=== PATIENT | male | born 1940 | race Caucasian/White ===

== ENCOUNTER 2017-05-14 15:27 | Inpatient (IN) | payer MEDICARE, BC ==
[~2017-05-14] VITALS: Ht 162.6 cm; Wt 82.6 kg
[2017-05-14 16:10] VITALS: BP 133/83
[2017-05-14] MEDS ORDERED: TEMA7.5C PO (16:28)
[2017-05-14] MEDS ORDERED: FAMO20VI2 IV (16:28)
[2017-05-14] MEDS ORDERED: LEVO750T21 PO (16:28)
[2017-05-14] MEDS ORDERED: AMLO10TA2 PO (16:28)
[2017-05-14] MEDS ORDERED: BENZ1LOZ58 MM (16:28)
[2017-05-14] MEDS ORDERED: ENOX40DI SUBCUT (16:28)
[2017-05-14] MEDS ORDERED: CHOL10002 PO (16:28)
[2017-05-14] MEDS ORDERED: GUAI200T5 PO (16:28)
[2017-05-14] MEDS ORDERED: FLUT16SP BNOSTRILS (16:28)
[2017-05-14] MEDS ORDERED: SILD20TA PO (16:28)
[2017-05-14] MEDS ORDERED: [UNRECOGNIZED DRUG - CODE] IV (16:28)
[2017-05-14] MEDS ORDERED: PIRF267T PO (16:44)
[2017-05-14] MEDS ORDERED: PIRF267C PO (16:44)
[2017-05-14] MEDS ORDERED: SELE200T33 PO (16:44)
[2017-05-14] MEDS ORDERED: IBUP1TAB68 PO (16:44)
--- NOTE | 2017-05-14 19:40 | NUR ---
PT alert and oriented x 4 medication. Pt is in no acute distress. 02 sat 94% on 6 liters humidified via n/c. Skin intact. IV on right hand intact. Call light is within reach. Notified Dr Cameron of new pt and need orders. Dr Jones here to see pt..
--- NOTE | 2017-05-14 20:00 | NUR ---
Received pt on bed alert, awake and oriented. Able to make needs known. No complaints of pain or discomfort. On O2 6L via nasal cannula, O2 sat 92%. Vital signs, BP 123/70, HR 101, RR 19, Temp 98.3. Call light within reach. All needs attended. Will continue to monitor.
--- NOTE | 2017-05-14 20:30 | NUR ---
Called Dr. Cameron to reconcile meds.
--- NOTE | 2017-05-14 21:00 | NUR ---
Dr. Cameron came and checked on the pt. Patient took his own meds. No acute distress noted. Denies pain. Kept clean, dry and comfortable.
[2017-05-14 21:04] VITALS: BP 123/70
[2017-05-15 06:25] LABS: BASOPHILS # (AUTO) 0.1 K/uL (0.0-8.0); EOSINOPHILS # (AUTO) 0.1 K/uL (0.0-0.7); EOSINOPHILS % (AUTO) 0.9 % (0.0-7.0); HEMATOCRIT 40.8 % (40-50); HEMOGLOBIN 13.5 G/DL (14.0-18.0); LYMPHOCYTES # (AUTO) 0.8 K/UL (0.8-4.8); LYMPHOCYTES % (AUTO) 6.7 % (20.5-51.5); MEAN CORPUSCULAR HEMOGLOBIN 29.8 UUG (27.0-31.0); MEAN CORPUSCULAR HGB CONC 33 g/dL (32.0-37.0); MEAN CORPUSCULAR VOLUME 90.4 FL (82.0-92.0); MONOCYTES # (AUTO) 0.9 K/UL (0.1-1.30); MONOCYTES % (AUTO) 6.8 % (0.0-11.0); NEUTROPHILS # (AUTO) 10.6 K/UL (1.8-8.9); NEUTROPHILS % (AUTO) 84.6 % (38.5-71.5); PLATELET COUNT (AUTO) 235 K/UL (150-450); RED BLOOD CELL COUNT(AUTO) 4.51 MIL/UL (4.7-6.1); WHITE BLOOD COUNT (AUTO) 12.5 K/UL (4.0-11.2)
[2017-05-15 06:40] LABS: ALANINE AMINOTRANSFERASE 18 U/L (16-63); ALKALINE PHOSPHATASE 45 U/L (50-136); ASPARTATE AMINOTRANSFERASE 14 U/L (15-37); BILIRUBIN,TOTAL 0.3 mg/dL (0.2-1.0); CARBON DIOXIDE 35 mmol/L (21-32); CHLORIDE 105 mmol/L (98-107); CREATININE 0.9 mg/dL (0.6-1.3); GLUCOSE 121 mg/dL (74-106); MAGNESIUM 2.2 mg/dL (1.8-2.4); PHOSPHOROUS 3.4 mg/dL (2.5-4.9); POTASSIUM 3.8 mmol/L (3.5-5.1); TOTAL PROTEIN, SERUM 5.8 g/dL (6.4-8.2); UREA NITROGEN, BLOOD 19 mg/dL (7-18)
--- NOTE | 2017-05-15 06:50 | NUR ---
Patient slept well throughout the shift. No c/o pain. Assisted pt to the bathroom with oxygen on, able to tolerate activity. On O2 6L via nasal cannula, O2 sat 93%. kept clean, dry and comfortable. Call light within reach. All needs attended. will continue to monitor
[2017-05-15 08:00] VITALS: BP_SYST 116; BP_SYST 145; BP_DIAS 67; BP_DIAS 84
[2017-05-15] MEDS ORDERED: SELEXIPAG 200 MCG PO SCH (09:00)
[2017-05-15] MEDS ORDERED: PATIENT MAY USE OWN MED- MD OK PO SCH ×3 (09:00→12:00)
[2017-05-15] MEDS ORDERED: LEVOFLOXACIN 750 MG TABLET PO SCH (09:00)
[2017-05-15] MEDS ORDERED: UPTRAVI PO SCH ×2 (09:00→21:00)
[2017-05-15] MEDS ORDERED: PIRFENIDONE 267 MG PO SCH ×2 (09:00→21:00)
[2017-05-15] MEDS: FAMOTIDINE. 20 MG/2 ML VIAL IV SCH ×2 (09:54→21:34)
[2017-05-15] MEDS: AMLODIPINE 10 MG TABLET PO SCH (09:54)
[2017-05-15] MEDS: CHOLECALCIFEROL 1,000 UNIT TABLET PO SCH (09:54)
[2017-05-15] MEDS: ENOXAPARIN SODIUM 40 MG/0.4 ML DISP.SYRIN SQ SCH (10:00)
[2017-05-15] MEDS: SILDENAFIL 20 MG TABLET PO SCH ×3 (10:00→18:12)
[2017-05-15] MEDS ORDERED: PATIENT MAY USE OWN MED- MD OK NS PRN (12:00)
[2017-05-15] MEDS ORDERED: PATIENT MAY USE OWN MED- MD OK EACHEYE PRN ×4 (12:00→14:00)
[2017-05-15] MEDS ORDERED: ESBRIET PO SCH (13:00)
[2017-05-15] MEDS: FLUTICASONE PROP NASAL SPRAY 16 GM BOTTLE NS SCH (13:18)
[2017-05-15] MEDS: LEVOFLOXACIN 500 MG TABLET PO SCH (13:18)
[2017-05-15] MEDS ORDERED: POLYVINYL ALCOHOL OPHT DROPS 15 ML BOTTLE EACHEYE PRN (14:15)
[2017-05-15] MEDS ORDERED: MINERAL OIL/PETROLAT OPHT OINT 3.5 GM TUBE EACHEYE PRN (14:30)
[2017-05-15] MEDS ORDERED: SELE200T33 PO (16:47)
[2017-05-15] MEDS ORDERED: ESBRIET 267 MG PO SCH (17:00)
[2017-05-15] MEDS: methylPREDNISolone SOD SUCC 40 MG/ML VIAL IV SCH ×2 (18:12→21:34)
[2017-05-15 20:28] VITALS: BP 130/84
[2017-05-15] MEDS ORDERED: ATORVASTATIN 10 MG TABLET PO SCH (21:00)
[2017-05-15] MEDS: SELEXIPAG PO SCH (21:34)
[2017-05-15] MEDS: TEMAZEPAM 7.5 MG CAPSULE PO PRN (21:58)
[2017-05-16] MEDS: methylPREDNISolone SOD SUCC 40 MG/ML VIAL IV SCH ×3 (06:21→21:37)
[2017-05-16] MEDS: LEVOFLOXACIN 500 MG TABLET PO SCH (06:21)
[2017-05-16] MEDS: FLUTICASONE PROP NASAL SPRAY 16 GM BOTTLE NS SCH (06:30)
--- NOTE | 2017-05-16 06:30 | NUR ---
PT ALERT,ORIENTED WITH PULM. FIBROSIS, PULM HTN, PNA, PT ON CONTINOUS OXYGEN ON 5LITERS WITH SATURATION OF 90%, DENIES ANY ACUTE DISTRESS, AMBULATES TO BATHROOM WITH OXYGEN AT ALL TIMES. MEDS CLARIFIED AGAIN WITH PATIENT, PT VERBALIZED MEDS RECONCILED ACCORDING TO HIS HOME SCHEDULE. REQUEST SEND TO PHARMACY, WILL CONTINUE TO MONITOR. OTHERWISE ALL NEEDS ATTENDED.HEPLOCK INTACT.
[2017-05-16 08:00] VITALS: BP 134/82
[2017-05-16] MEDS: ATORVASTATIN 10 MG TABLET PO SCH (09:07)
[2017-05-16] MEDS: SILDENAFIL 20 MG TABLET PO SCH ×3 (09:07→16:57)
[2017-05-16] MEDS: FAMOTIDINE. 20 MG/2 ML VIAL IV SCH (09:07)
[2017-05-16] MEDS: ESBRIET 267 MG PO SCH ×3 (09:08→21:11)
[2017-05-16] MEDS: SELEXIPAG PO SCH ×2 (09:08→21:10)
[2017-05-16] MEDS: AMLODIPINE 10 MG TABLET PO SCH (09:08)
[2017-05-16] MEDS: CHOLECALCIFEROL 1,000 UNIT TABLET PO SCH (09:09)
[2017-05-16] MEDS: ENOXAPARIN SODIUM 40 MG/0.4 ML DISP.SYRIN SQ SCH (09:11)
--- NOTE | 2017-05-16 12:47 | NUR ---
Housekeeping Staff SW met with patient at [facility] to assess pt needs and provide support. The patient is a 77 year old male who was admitted with SOB and functional decline. The patient was calm and cooperative during the interview. He stated that he lives at home with his spouse [[id number] [place] [address]; ] and would like to return there upon discharge. Social history: The patient was born and raised in the [facility] and grew up with his parents. The patient worked for a [employer] and also worked in administrative roles, sales, and customer service. He was wamrried to his for 5 years and her. He stated he has been in a relationship with his for 47 (and legally 2 years ago). The patient has a 52 year old son from his first marriage and has a good relationship with him. The patient denied any history of abuse or domestic violence. The patient denied any history of alcohol or drug abuse. SW engaged in active listening and provided supportive counseling during the interview to address patient's depressive symptoms related to his decline in functioning. SW will continue to address issues of loss related to recent hospitalization. SW will encourage compliance with rehab goals. SW will be available as needed.
--- NOTE | 2017-05-16 14:39 | NUR ---
Rehab Team Conference 05/16/17
--- NOTE | 2017-05-16 17:35 | NUR ---
Dr. Dialol in the unit and rounded with him to pt's room, report given no orders received.
--- NOTE | 2017-05-16 20:00 | NUR ---
RECEIVED PT ALERT & ORIENTED X4. ON O2 @ 5LNC W/ O2 SAT OF 92%. HEP LOCK INTACT & PATENT ON L HAND. DENIES PAIN. NOT IN ANY DISTRESS.
[2017-05-16 20:32] VITALS: BP 120/78
[2017-05-16] MEDS: FAMOTIDINE 20 MG TABLET PO SCH (21:10)
[2017-05-16 21:18] LABS: BASOPHILS # (AUTO) 0.1 K/uL (0.0-8.0); BASOPHILS % (AUTO) 0.4 % (0.0-2.0); EOSINOPHILS # (AUTO) 0.1 K/uL (0.0-0.7); EOSINOPHILS % (AUTO) 0.9 % (0.0-7.0); HEMATOCRIT 40.3 % (40-50); HEMOGLOBIN 13.5 G/DL (14.0-18.0); LYMPHOCYTES # (AUTO) 0.6 K/UL (0.8-4.8); LYMPHOCYTES % (AUTO) 4.5 % (20.5-51.5); MEAN CORPUSCULAR HEMOGLOBIN 30.1 UUG (27.0-31.0); MEAN CORPUSCULAR HGB CONC 33 g/dL (32.0-37.0); MEAN CORPUSCULAR VOLUME 90.3 FL (82.0-92.0); MONOCYTES # (AUTO) 0.6 K/UL (0.1-1.30); MONOCYTES % (AUTO) 4.7 % (0.0-11.0); NEUTROPHILS # (AUTO) 11.8 K/UL (1.8-8.9); NEUTROPHILS % (AUTO) 89.5 % (38.5-71.5); PLATELET COUNT (AUTO) 206 K/UL (150-450); RED BLOOD CELL COUNT(AUTO) 4.47 MIL/UL (4.7-6.1); WHITE BLOOD COUNT (AUTO) 13.2 K/UL (4.0-11.2)
[2017-05-16 21:45] LABS: ALANINE AMINOTRANSFERASE 22 U/L (16-63); ALKALINE PHOSPHATASE 47 U/L (50-136); ASPARTATE AMINOTRANSFERASE 18 U/L (15-37); BILIRUBIN,TOTAL 0.2 mg/dL (0.2-1.0); CARBON DIOXIDE 37 mmol/L (21-32); CHLORIDE 100 mmol/L (98-107); CREATININE 0.9 mg/dL (0.6-1.3); GLUCOSE 187 mg/dL (74-106); MAGNESIUM 2.1 mg/dL (1.8-2.4); PHOSPHOROUS 3.1 mg/dL (2.5-4.9); POTASSIUM 3.4 mmol/L (3.5-5.1); TOTAL PROTEIN, SERUM 5.8 g/dL (6.4-8.2); UREA NITROGEN, BLOOD 22 mg/dL (7-18)
[2017-05-16 21:59] LABS: BAND % (MANUAL) 4 % (0-10); LYMPHOCYTES % (MANUAL) 5 % (20-40); MONOCYTES % (MANUAL) 5 % (2-10); NEUTROPHILS % (MANUAL) 86 % (42-75)
[2017-05-17] MEDS: LEVOFLOXACIN 500 MG TABLET PO SCH (05:36)
[2017-05-17] MEDS: methylPREDNISolone SOD SUCC 40 MG/ML VIAL IV SCH ×2 (05:36→21:09)
--- NOTE | 2017-05-17 06:00 | NUR ---
HEP LOCK INTACT & PATENT. REMAINS ON O2 @ 5LNC. DENIES ANY DISCOMFORTS.
[2017-05-17 08:00] VITALS: BP 147/82
[2017-05-17] MEDS: FLUTICASONE PROP NASAL SPRAY 16 GM BOTTLE NS SCH (08:21)
[2017-05-17] MEDS: ATORVASTATIN 10 MG TABLET PO SCH (08:23)
[2017-05-17] MEDS: FAMOTIDINE 20 MG TABLET PO SCH ×2 (08:23→21:10)
[2017-05-17] MEDS: CHOLECALCIFEROL 1,000 UNIT TABLET PO SCH (08:23)
[2017-05-17] MEDS: SELEXIPAG PO SCH ×2 (08:23→21:11)
[2017-05-17] MEDS: ESBRIET 267 MG PO SCH ×3 (08:24→21:10)
[2017-05-17] MEDS: IBUPROFEN 200 MG TABLET PO PRN (08:25)
[2017-05-17] MEDS: ENOXAPARIN SODIUM 40 MG/0.4 ML DISP.SYRIN SQ SCH (08:29)
[2017-05-17] MEDS: AMLODIPINE 10 MG TABLET PO SCH (08:29)
[2017-05-17] MEDS ORDERED: POTASSIUM CHLORIDE 20 MEQ TAB.PRT.SR PO ONE (11:45)
[2017-05-17 20:40] VITALS: BP 121/80
[2017-05-18] MEDS: LEVOFLOXACIN 500 MG TABLET PO SCH (06:16)
[2017-05-18 06:58] LABS: BASOPHILS % (AUTO) 0.2 % (0.0-2.0); EOSINOPHILS # (AUTO) 0.1 K/uL (0.0-0.7); HEMATOCRIT 40.1 % (40-50); HEMOGLOBIN 13.3 G/DL (14.0-18.0); LYMPHOCYTES # (AUTO) 0.7 K/UL (0.8-4.8); LYMPHOCYTES % (AUTO) 5.7 % (20.5-51.5); MEAN CORPUSCULAR HGB CONC 33 g/dL (32.0-37.0); MEAN CORPUSCULAR VOLUME 90.5 FL (82.0-92.0); MONOCYTES # (AUTO) 0.6 K/UL (0.1-1.30); MONOCYTES % (AUTO) 4.9 % (0.0-11.0); NEUTROPHILS # (AUTO) 10.3 K/UL (1.8-8.9); NEUTROPHILS % (AUTO) 88.2 % (38.5-71.5); PLATELET COUNT (AUTO) 193 K/UL (150-450); RED BLOOD CELL COUNT(AUTO) 4.43 MIL/UL (4.7-6.1); WHITE BLOOD COUNT (AUTO) 11.7 K/UL (4.0-11.2)
[2017-05-18 07:02] LABS: CARBON DIOXIDE 39 mmol/L (21-32); CHLORIDE 103 mmol/L (98-107); CREATININE 0.8 mg/dL (0.6-1.3); GLUCOSE 121 mg/dL (74-106); MAGNESIUM 2.2 mg/dL (1.8-2.4); PHOSPHOROUS 3.7 mg/dL (2.5-4.9); POTASSIUM 4.3 mmol/L (3.5-5.1); UREA NITROGEN, BLOOD 17 mg/dL (7-18)
--- NOTE | 2017-05-18 07:15 | NUR ---
Received pt in bed, a/o x4, on 5L/NC, Denies any pain, Call light within reach, Bed kept low/locked position.
[2017-05-18 07:45] VITALS: BP 125/71
[2017-05-18 08:25] LABS: BAND % (MANUAL) 1 % (0-10); LYMPHOCYTES % (MANUAL) 10 % (20-40); METAMYELOCYTES % 1 % (0-1); MONOCYTES % (MANUAL) 3 % (2-10); MYELOCYTES % 1 % (0-0); NEUTROPHILS % (MANUAL) 84 % (42-75)
[2017-05-18] MEDS: CHOLECALCIFEROL 1,000 UNIT TABLET PO SCH (08:39)
[2017-05-18] MEDS: FAMOTIDINE 20 MG TABLET PO SCH ×2 (08:39→22:03)
[2017-05-18] MEDS: FLUTICASONE PROP NASAL SPRAY 16 GM BOTTLE NS SCH (08:39)
[2017-05-18] MEDS: ATORVASTATIN 10 MG TABLET PO SCH (08:40)
[2017-05-18] MEDS: SELEXIPAG PO SCH ×2 (08:40→22:10)
[2017-05-18] MEDS: AMLODIPINE 10 MG TABLET PO SCH (08:40)
[2017-05-18] MEDS: ESBRIET 267 MG PO SCH ×3 (08:40→22:10)
[2017-05-18] MEDS: methylPREDNISolone SOD SUCC 40 MG/ML VIAL IV SCH ×2 (08:41→22:04)
[2017-05-18] MEDS: ENOXAPARIN SODIUM 40 MG/0.4 ML DISP.SYRIN SQ SCH (08:43)
--- NOTE | 2017-05-18 16:13 | NUR ---
WAS NOTIFIED BY [facility] THAT PT IS POSITIVE FOR MRSA NARES. DR. VEE WAS MADE AWARE WITH NEW ORDERS RECEIVED FOR BACTROBAN OINTMENT TO NARES. PT TEACHING PROVIDED TO FAMILY AND PATIENT ON ISOLATION PRECAUTIONS, VERBALIZE UNDERSTANDING.
--- NOTE | 2017-05-18 18:19 | NUR ---
PT IN BED, NO ACUTE DISTRESS NOTED, HEPLOCK TO LEFT HAND G 20, INTACT AND PATENT. CALL LIGHT WITHIN REACH, BED LOW LOCKED POSITION.
[2017-05-18 20:55] VITALS: BP 113/75
[2017-05-18] MEDS: MUPIROCIN 2% OINT 22 GM TUBE NS SCH (22:08)
--- NOTE | 2017-05-19 01:35 | NUR ---
2000: Received SBAR report. Pt resting in bed on right side. No acute distress. a/o x 4 follows directions. DENIS. able to ambulate to BR by self. Pt assessment done and documented. Denies any pain. Continue to monitor. Addendum: 05/19/17 at 0510 by AILIN HOLLINS RN No acute distress. resting with eyes close. No changes.
[2017-05-19] MEDS: LEVOFLOXACIN 500 MG TABLET PO SCH (05:53)
[2017-05-19 08:55] VITALS: BP 159/70
[2017-05-19] MEDS: SELEXIPAG PO SCH ×2 (09:00→21:13)
[2017-05-19] MEDS: FLUTICASONE PROP NASAL SPRAY 16 GM BOTTLE NS SCH (11:36)
[2017-05-19] MEDS: MUPIROCIN 2% OINT 22 GM TUBE NS SCH ×2 (11:37→20:51)
[2017-05-19] MEDS: methylPREDNISolone SOD SUCC 40 MG/ML VIAL IV SCH ×2 (11:39→20:51)
[2017-05-19] MEDS: ATORVASTATIN 10 MG TABLET PO SCH (11:39)
[2017-05-19] MEDS: AMLODIPINE 10 MG TABLET PO SCH (11:40)
[2017-05-19] MEDS: FAMOTIDINE 20 MG TABLET PO SCH ×2 (11:40→20:51)
[2017-05-19] MEDS: ENOXAPARIN SODIUM 40 MG/0.4 ML DISP.SYRIN SQ SCH (11:42)
[2017-05-19] MEDS: ESBRIET 267 MG PO SCH ×3 (13:33→21:12)
[2017-05-19] MEDS: CHOLECALCIFEROL 1,000 UNIT TABLET PO SCH (13:33)
[2017-05-19] MEDS: SIMETHICONE 80 MG TAB.CHEW PO PRN (14:36)
[2017-05-19 20:14] VITALS: BP 138/72
--- NOTE | 2017-05-20 05:29 | NUR ---
AAO x 4 No neuro deficit noted. Continues to have DOC. On 5 L NC O2. No respiratory or cardiac distress. Denied pain. sleeping comfortably and well. voiding without problem. continue to monitor.
[2017-05-20] MEDS: LEVOFLOXACIN 500 MG TABLET PO SCH (05:58)
[2017-05-20 07:25] VITALS: BP 128/78
--- NOTE | 2017-05-20 08:00 | NUR ---
RECEIVED PT ALERT & ORIENTED X4. ON O2 @ 5LNC W/ O2 SAT OF 92%. HEP LOCK INTACT & PATENT. DENIES PAIN. NOT IN ANY DISTRESS.
[2017-05-20] MEDS: AMLODIPINE 10 MG TABLET PO SCH (09:55)
[2017-05-20] MEDS: ATORVASTATIN 10 MG TABLET PO SCH (09:55)
[2017-05-20] MEDS: methylPREDNISolone SOD SUCC 40 MG/ML VIAL IV SCH ×2 (09:55→21:42)
[2017-05-20] MEDS: CHOLECALCIFEROL 1,000 UNIT TABLET PO SCH (09:56)
[2017-05-20] MEDS: FAMOTIDINE 20 MG TABLET PO SCH ×2 (09:56→21:44)
[2017-05-20] MEDS: FLUTICASONE PROP NASAL SPRAY 16 GM BOTTLE NS SCH (09:57)
[2017-05-20] MEDS: MUPIROCIN 2% OINT 22 GM TUBE NS SCH ×2 (09:57→21:43)
[2017-05-20] MEDS: ESBRIET 267 MG PO SCH ×3 (09:58→21:43)
[2017-05-20] MEDS: SELEXIPAG PO SCH ×2 (09:58→21:43)
--- NOTE | 2017-05-20 18:00 | NUR ---
stable at this time. no s/s of any acute distress noted. amb independently to the bathroom
--- NOTE | 2017-05-20 19:30 | NUR ---
PT ALERT AND ORIENTED IN BED. NO DISTRESS NOTED. O2 SAT 97% WITH O2 IN PLACE. ISOLATION PRECAUTIONS IN PLACE. IV INTACT AND PATENT. SAFETY MAINTAINED. CALL LIGHT WITHIN REACH. WILL CONTINUE TO MONITOR.
[2017-05-20 20:00] VITALS: BP 157/74
[2017-05-20] MEDS: SIMETHICONE 80 MG TAB.CHEW PO PRN (21:44)
[2017-05-20] MEDS: TEMAZEPAM 7.5 MG CAPSULE PO PRN (21:44)
[2017-05-21] MEDS: LEVOFLOXACIN 500 MG TABLET PO SCH (05:41)
--- NOTE | 2017-05-21 07:03 | NUR ---
PT ALERT AND ORIENTED IN BED. NO DISTRESS NOTED. NO SOB NOTED. O2 5L NC WITH HUMIDIFIER IN PLACE. ISOLATION PRECAUTION IN PLACE. SAFETY MAINTAINED. CALL LIGHT WITHIN REACH.
[2017-05-21 07:20] VITALS: BP 149/82
[2017-05-21] MEDS: ESBRIET 267 MG PO SCH ×3 (08:06→21:43)
[2017-05-21] MEDS: FAMOTIDINE 20 MG TABLET PO SCH ×2 (08:06→21:44)
[2017-05-21] MEDS: CHOLECALCIFEROL 1,000 UNIT TABLET PO SCH (08:06)
[2017-05-21] MEDS: SELEXIPAG PO SCH ×2 (08:06→21:42)
[2017-05-21] MEDS: ATORVASTATIN 10 MG TABLET PO SCH (08:06)
[2017-05-21] MEDS: IBUPROFEN 200 MG TABLET PO PRN (08:08)
[2017-05-21] MEDS: MUPIROCIN 2% OINT 22 GM TUBE NS SCH ×2 (08:08→21:45)
[2017-05-21] MEDS: methylPREDNISolone SOD SUCC 40 MG/ML VIAL IV SCH ×2 (08:10→21:44)
[2017-05-21] MEDS: FLUTICASONE PROP NASAL SPRAY 16 GM BOTTLE NS SCH (08:11)
[2017-05-21] MEDS: AMLODIPINE 10 MG TABLET PO SCH (08:23)
[2017-05-21] MEDS: GUAIFENESIN SUGAR FREE 100 MG/5 ML UDC PO PRN ×2 (08:23→21:45)
[2017-05-21] MEDS: SIMETHICONE 80 MG TAB.CHEW PO PRN ×2 (13:09→18:51)
[2017-05-21 20:17] VITALS: BP 130/68
[2017-05-21] MEDS: TEMAZEPAM 7.5 MG CAPSULE PO PRN (21:44)
[2017-05-22 06:41] LABS: BASOPHILS # (AUTO) 0.8 K/uL (0.0-8.0); BASOPHILS % (AUTO) 4.6 % (0.0-2.0); EOSINOPHILS # (AUTO) 0.1 K/uL (0.0-0.7); EOSINOPHILS % (AUTO) 0.5 % (0.0-7.0); HEMATOCRIT 42.6 % (40-50); HEMOGLOBIN 13.8 G/DL (14.0-18.0); LYMPHOCYTES # (AUTO) 1.9 K/UL (0.8-4.8); LYMPHOCYTES % (AUTO) 11.9 % (20.5-51.5); MEAN CORPUSCULAR HEMOGLOBIN 29.6 UUG (27.0-31.0); MEAN CORPUSCULAR HGB CONC 32 g/dL (32.0-37.0); MEAN CORPUSCULAR VOLUME 91.6 FL (82.0-92.0); MONOCYTES # (AUTO) 1.4 K/UL (0.1-1.30); MONOCYTES % (AUTO) 8.6 % (0.0-11.0); NEUTROPHILS # (AUTO) 12.1 K/UL (1.8-8.9); NEUTROPHILS % (AUTO) 74.4 % (38.5-71.5); PLATELET COUNT (AUTO) 180 K/UL (150-450); RED BLOOD CELL COUNT(AUTO) 4.66 MIL/UL (4.7-6.1); WHITE BLOOD COUNT (AUTO) 16.3 K/UL (4.0-11.2)
--- NOTE | 2017-05-22 06:49 | NUR ---
PT RESTING IN BED. NO DISTRESS NOTED. IV INTACT AND PATENT. COMPLIANT WITH NURSING CARE. SLEPT WELL THROUGHOUT THE NIGHT. SAFETY MAINTAINED. CALL LIGHT WITHIN REACH. Addendum: 05/22/17 at 0651 by PEDRO ESQUEDA RN ISOLATION MAINTAINED.
[2017-05-22 06:58] LABS: CHLORIDE 104 mmol/L (98-107); CREATININE 0.9 mg/dL (0.6-1.3); GLUCOSE 92 mg/dL (74-106); PHOSPHOROUS 3.4 mg/dL (2.5-4.9); POTASSIUM 3.6 mmol/L (3.5-5.1); UREA NITROGEN, BLOOD 12 mg/dL (7-18)
[2017-05-22 07:08] LABS: CARBON DIOXIDE 40 mmol/L (21-32)
[2017-05-22 07:15] VITALS: BP 138/75
[2017-05-22] MEDS: ATORVASTATIN 10 MG TABLET PO SCH (07:46)
[2017-05-22] MEDS: CHOLECALCIFEROL 1,000 UNIT TABLET PO SCH (07:46)
[2017-05-22] MEDS: FAMOTIDINE 20 MG TABLET PO SCH ×2 (07:46→20:41)
[2017-05-22] MEDS: FLUTICASONE PROP NASAL SPRAY 16 GM BOTTLE NS SCH (07:47)
[2017-05-22] MEDS: methylPREDNISolone SOD SUCC 40 MG/ML VIAL IV SCH ×2 (07:47→20:40)
[2017-05-22] MEDS: AMLODIPINE 10 MG TABLET PO SCH (07:47)
[2017-05-22] MEDS: MUPIROCIN 2% OINT 22 GM TUBE NS SCH ×2 (07:47→20:41)
[2017-05-22] MEDS: ESBRIET 267 MG PO SCH ×3 (07:48→20:41)
[2017-05-22] MEDS: SELEXIPAG PO SCH ×2 (07:48→20:41)
[2017-05-22 08:34] LABS: BAND % (MANUAL) 3 % (0-10); LYMPHOCYTES % (MANUAL) 10 % (20-40); MONOCYTES % (MANUAL) 11 % (2-10); NEUTROPHILS % (MANUAL) 76 % (42-75)
[2017-05-22 15:10] LABS: ABG BASE EXCESS 3.7 mmol/L; ABG HCO3 28.4 mmol/L; ABG PH 7.437 (7.350-7.450); ABG PO2 72.5 mmHg (75.0-100.0); ABG SITE RIGHT RADIAL; ABG TOTAL HEMOGLOBIN 14.9 G/dL (13.5-18.0); O2Hb 92.8 % (94.0-97.0)
[2017-05-22 15:11] LABS: COHb 1.8 % (0.5-1.5); MetHb 0.2 % (0.0-1.5)
--- NOTE | 2017-05-22 19:30 | NUR ---
Report received. Patient AAO, watching TV. NAD noted. O2 @ 5 L NC. Assessment completed. Addendum: 05/23/17 at 0341 by MONIQUE GONZALES RN Amended: Links added.
[2017-05-22 20:03] VITALS: BP 125/77
[2017-05-22] MEDS: SIMETHICONE 80 MG TAB.CHEW PO PRN (20:59)
[2017-05-22] MEDS: TEMAZEPAM 7.5 MG CAPSULE PO PRN (21:00)
--- NOTE | 2017-05-22 21:00 | NUR ---
Medicated with Restoril and Mylicon per patient's request. Addendum: 05/23/17 at 0347 by MONIQUE GONZALES RN Amended: Links added. Addendum: 05/23/17 at 0348 by MONIQUE GONZALES RN Amended: Links added.
--- NOTE | 2017-05-23 05:19 | NUR ---
Angeli effective; patient sleeping well. NAD noted. Addendum: 05/23/17 at 0520 by MONIQUE GONZALES RN Amended: Links added.
--- NOTE | 2017-05-23 06:00 | NUR ---
Patient awake, tea served. Very appreciative of care. Still mildly SOB during exertion even when talking. O2 increased to 4 L NC; claims he had it down to 3L while sleeping. Admits to chronic O2 use at home because of Pulmonary Fibrosis. Addendum: 05/23/17 at 0624 by MONIQUE GONZALES RN Amended: Links added.
--- NOTE | 2017-05-23 07:45 | NUR ---
Pt. A/A/O,eating breakfast,no s/s of distress,denies pain.
[2017-05-23 08:00] VITALS: BP 126/74
[2017-05-23] MEDS: methylPREDNISolone SOD SUCC 40 MG/ML VIAL IV SCH (09:12)
[2017-05-23] MEDS: MUPIROCIN 2% OINT 22 GM TUBE NS SCH (09:13)
[2017-05-23] MEDS: FLUTICASONE PROP NASAL SPRAY 16 GM BOTTLE NS SCH (09:14)
[2017-05-23] MEDS: ATORVASTATIN 10 MG TABLET PO SCH (09:14)
[2017-05-23] MEDS: CHOLECALCIFEROL 1,000 UNIT TABLET PO SCH (09:14)
[2017-05-23 09:15] VITALS: BP 126/74
[2017-05-23] MEDS: SELEXIPAG PO SCH (09:15)
[2017-05-23] MEDS: AMLODIPINE 10 MG TABLET PO SCH (09:15)
[2017-05-23] MEDS: FAMOTIDINE 20 MG TABLET PO SCH (09:15)
[2017-05-23] MEDS: IBUPROFEN 200 MG TABLET PO PRN (09:17)
[2017-05-23] MEDS: ESBRIET 267 MG PO SCH ×2 (09:18→12:26)
--- NOTE | 2017-05-23 12:45 | NUR ---
Pt.was d/c home,no s/s of distress,denies any pain @ time,family at bedside.
== END 2017-05-23 12:45 | disposition home health service (06) | DRG 196 ==
PROVIDERS: ADMIT Physical Medicine & Rehabilitation Pain Medicine; ATTEND Physical Medicine & Rehabilitation Pain Medicine
DX: J84.112 Idiopathic pulmonary fibrosis (principal); J18.9 Pneumonia, unspecified organism; E87.3 Alkalosis; J96.11 Chronic respiratory failure with hypoxia; J96.12 Chronic respiratory failure with hypercapnia; I11.0 Hypertensive heart disease with heart failure; I50.32 Chronic diastolic (congestive) heart failure; I27.2 Other secondary pulmonary hypertension; Z99.81 Dependence on supplemental oxygen; D71 Functional disorders of polymorphonuclear neutrophils; R53.1 Weakness; R59.0 Localized enlarged lymph nodes; R73.9 Hyperglycemia, unspecified; E78.5 Hyperlipidemia, unspecified; I34.0 Nonrheumatic mitral (valve) insufficiency; I70.0 Atherosclerosis of aorta; Z22.322 Carrier or suspected carrier of Methicillin resistant Staphylococcus aureus; Z87.891 Personal history of nicotine dependence; Z87.442 Personal history of urinary calculi; K21.9 Gastro-esophageal reflux disease without esophagitis; J31.0 Chronic rhinitis
CPT/HCPCS: 36415; 36600; 71010; 83735; 84100; 85025; 92526; 92610; 93307; 97110; 97112; 97116; 97530; 97535; J1650; J2920; J3490; J3535